=== PATIENT | male | born 1990 | race Caucasian/White ===

== ENCOUNTER → 2016-11-26 | Outpatient (CLI) | payer BC, OTHER ==
[~2016-11-26] VITALS: Ht 180.3 cm; Wt 161.2 kg
[~2016-11-26] MED LIST: ARIP15TA PO; MRLP17 PO; [UNRECOGNIZED DRUG - CODE]; [UNRECOGNIZED DRUG - REMARK]
[2016-11-26 14:45] VITALS: BP 126/75; PULSE 73; Ht 180.3 cm; Wt 161.2 kg
== END | disposition home or self-care (01) ==
LOC: C.NEUR 14:07
PROVIDERS: ATTEND Internal Medicine Pulmonary Disease
DX: G47.19 Other hypersomnia (principal); R06.83 Snoring; E66.9 Obesity, unspecified; F91.3 Oppositional defiant disorder

== ENCOUNTER → 2016-12-07 | Outpatient (CLI) | payer OTHER, BC ==
--- NOTE | 2016-12-10 11:07 | POLYSOMNOGRAPH REPORT ---
CLINICAL DATA: A 26-year-old male with a BMI of 49.56 referred by myself with a history of excessive daytime sleepiness, snoring and obesity. On the evening of 12/07/2016, a home sleep apnea test was performed using a [employer]corn5 type 3 monitor. RECORDING RESULTS: Total recording time was 10 hours. The patient's estimated sleep time and patient monitoring time was 10 hour. RESPIRATORY DATA: Mild sleep apnea was documented. The KVNG was 13.9. There were 5 obstructive, 4 mixed, and 3 central apneic episodes. There were 127 hypopneic episodes. The longest respiratory event was 48 seconds. OXIMETRY DATA: Nocturnal hypoxemia was seen. Oxygen anson was 82%. Mean saturation was 91%. Time below 89% was 22 minutes. EKG: Heart rates ranged from 46 to 61 beats per minute. SNORING DATA: Snoring was recorded throughout the night. IMPRESSION: Mild obstructive sleep apnea with nocturnal hypoxemia. RECOMMENDATIONS: The patient may benefit from weight loss, use of an oral appliance, or repeat sleep study with CPAP. Clinical correlation is needed. JON
== END | disposition home or self-care (01) ==
LOC: C.NEUR 11:26
PROVIDERS: ATTEND Internal Medicine Pulmonary Disease
DX: G47.19 Other hypersomnia (principal); R06.83 Snoring; E66.9 Obesity, unspecified

== ENCOUNTER → 2017-04-26 | Outpatient (CLI) | payer BC, OTHER ==
[~2017-04-26] VITALS: Ht 180.3 cm; Wt 171.4 kg
[2017-04-26 14:31] VITALS: BP 106/63; PULSE 91; Ht 180.3 cm; Wt 171.4 kg
== END | disposition home or self-care (01) ==
LOC: C.NEUR 13:00
PROVIDERS: ATTEND Internal Medicine Pulmonary Disease
DX: G47.33 Obstructive sleep apnea (adult) (pediatric) (principal); E66.9 Obesity, unspecified; R53.83 Other fatigue